=== PATIENT | female | born 1980 | race Caucasian/White ===

== ENCOUNTER 2020-09-01 11:25 | Outpatient (REF) | payer OTHER, SELFPAY ==
[2020-09-01 15:23] LABS: Anion Gap 13 (12-20); Blood Urea Nitrogen 16 mg/dL (9-16); Calcium 9.4 mg/dL (8.4-10.2); Carbon Dioxide 28 mmol/L (22-29); Chloride 100 mmol/L (96-108); Estimated Glomerular Filt Rate > 60; Phosphorus 2.9 mg/dL (2.7-4.5); Potassium 3.4 mmol/l (3.3-5.1); Sodium 138 mmol/L (135-145)
[2020-09-01 16:05] LABS: Renal w Reflex Lab Use Only Order verified
== END 2020-09-01 11:26 | disposition home or self-care (01) ==
LOC: HO.HMGCLDS 11:25
PROVIDERS: PCP Internal Medicine; Visit Provider Internal Medicine Nephrology
DX: I15.9 Secondary hypertension, unspecified (principal); E87.6 Hypokalemia; I10 Essential (primary) hypertension
CPT/HCPCS: 80051; 82310; 82565; 84100; 84520

== ENCOUNTER 2021-04-07 10:41 | Outpatient (REF) | payer OTHER, SELFPAY ==
[2021-04-07 14:07] LABS: Anion Gap 12 (12-20); Blood Urea Nitrogen 15 mg/dL (9-16); Calcium 8.9 mg/dL (8.4-10.2); Chloride 101 mmol/L (96-108); Estimated Glomerular Filt Rate > 60; Phosphorus 3.5 mg/dL (2.7-4.5); Potassium 3.4 mmol/L (3.3-5.1); Sodium 136 mmol/L (135-145)
[2021-04-07 14:16] LABS: Carbon Dioxide 26 mmol/L (22-29)
[2021-04-07 14:33] LABS: Renal w Reflex Lab Use Only Order verified
== END 2021-04-07 10:42 | disposition home or self-care (01) ==
LOC: HO.10HDL 10:41
PROVIDERS: Visit Provider Internal Medicine Nephrology
DX: I15.9 Secondary hypertension, unspecified (principal); E87.6 Hypokalemia
CPT/HCPCS: 36415; 80051; 82310; 82565; 84100; 84520

== ENCOUNTER 2021-10-19 07:45 | Outpatient (REF) | payer OTHER, SELFPAY ==
[2021-10-19 11:25] LABS: Hematocrit 39.8 % (37.0-47.0); Hemoglobin 13.7 g/dl (12.0-16.0); Mean Corpuscular HGB Conc 34.4 g/dl (31.0-35.0); Mean Corpuscular Hemoglobin 31.4 pg (27.0-33.0); Mean Corpuscular Volume 91.1 fL (80.0-98.0); Mean Platelet Volume 10.6 fL (9.4-12.3); Platelet Count 221 X10*3/uL (160-400); Red Blood Count 4.37 X10*6/uL (4.20-5.50); Red Cell Distribution Width 12.1 % (11.0-16.0); White Blood Count 4.7 X10*3/uL (4.8-10.8)
[2021-10-19 11:39] LABS: Alanine Aminotransferase 16 U/L (0-31); Albumin Level 4.1 g/dL (3.5-5.0); Alkaline Phosphatase 52 U/L (39-117); Anion Gap 12 (12-20); Aspartate Amino Transferase 14 U/L (5-31); Bilirubin Total 0.4 mg/dL (0.0-1.0); Blood Urea Nitrogen 14 mg/dL (9-16); Calcium 9.3 mg/dL (8.4-10.2); Carbon Dioxide 26 mmol/L (22-29); Chloride 103 mmol/L (96-108); Cholesterol 179 mg/dL; Estimated Glomerular Filt Rate > 60; Glucose Fasting 81 mg/dL (60-99); HDL Cholesterol 91 mg/dL; LDL Cholesterol Calculated 77 mg/dl; Sodium 137 mmol/L (135-145); Total Protein 7.3 g/dL (6.5-8.0); Triglycerides 57 mg/dL
[2021-10-19 11:43] LABS: Anion Gap 16 (12-20); Blood Urea Nitrogen 14 mg/dL (9-16); Calcium 9.3 mg/dL (8.4-10.2); Carbon Dioxide 22 mmol/L (22-29); Chloride 103 mmol/L (96-108); Estimated Glomerular Filt Rate > 60; Potassium 3.8 mmol/L (3.3-5.1); Sodium 137 mmol/L (135-145)
[2021-10-19 12:00] LABS: TSH reflex Free T4 0.92 uIU/mL (0.32-4.0)
== END 2021-10-19 07:46 | disposition home or self-care (01) ==
LOC: HO.HMGCLDS 07:45
PROVIDERS: Absent Provider Internal Medicine Nephrology; PCP Internal Medicine; Visit Provider Internal Medicine
DX: Z00.00 Encounter for general adult medical examination without abnormal findings (principal); I10 Essential (primary) hypertension; E87.6 Hypokalemia
CPT/HCPCS: 36415; 80051; 80053; 80061; 82310; 82565; 84443; 84520; 85027

== ENCOUNTER 2022-11-07 08:58 | Outpatient (REF) | payer OTHER, SELFPAY ==
[2022-11-07 11:23] LABS: Anion Gap 13 (12-20); Blood Urea Nitrogen 19 mg/dL (9-16); Calcium 9.1 mg/dL (8.4-10.2); Carbon Dioxide 27 mmol/L (22-29); Chloride 101 mmol/L (96-108); Estimated Glomerular Filt Rate > 60; Potassium 4.1 mmol/L (3.3-5.1); Sodium 137 mmol/L (135-145)
== END 2022-11-07 08:59 | disposition home or self-care (01) ==
LOC: HO.10HDL 08:58
PROVIDERS: Visit Provider Internal Medicine Nephrology
DX: I10 Essential (primary) hypertension (principal)
CPT/HCPCS: 36415; 80051; 82310; 82565; 84520

== ENCOUNTER 2022-12-05 08:44 | Outpatient (REF) | payer OTHER, SELFPAY ==
[2022-12-05 11:05] LABS: MANUAL DIFF FLAG NO
[2022-12-05 11:30] LABS: Basophils Percent Auto 0.5 % (0-2); Eosinophils Absolute Auto 0.1 X10*3/uL (0.0-0.4); Eosinophils Percent Auto 1.1 % (0-4); Hematocrit 37.2 % (37.0-47.0); Hemoglobin 12.8 g/dl (12.0-16.0); Imm Gran Abs Auto 0.02 X10*3/uL (0.00-0.03); Imm Gran Pct Auto 0.3 % (0.0-0.4); Lymphocytes Absolute Auto 1.5 X10*3/uL (1.2-4.9); Lymphocytes Percent Auto 23.2 % (20-40); Mean Corpuscular HGB Conc 34.4 g/dl (31.0-35.0); Mean Corpuscular Hemoglobin 30.5 pg (27.0-33.0); Mean Corpuscular Volume 88.8 fL (80.0-98.0); Mean Platelet Volume 10.3 fL (9.4-12.3); Monocytes Absolute Auto 0.5 X10*3/uL (0.1-1.2); Monocytes Percent Auto 7.8 % (2-11); Neutrophils Absolute Auto 4.3 x10*3/uL (2.0-8.3); Neutrophils Percent Auto 67.1 % (45-73); Platelet Count 273 X10*3/uL (160-400); Red Blood Count 4.19 X10*6/uL (4.20-5.50); Red Cell Distribution Width 11.9 % (11.0-16.0); White Blood Count 6.4 X10*3/uL (4.8-10.8)
[2022-12-05 11:39] LABS: Alanine Aminotransferase 18 U/L (0-31); Albumin Level 4.1 g/dL (3.5-5.0); Alkaline Phosphatase 72 U/L (39-117); Anion Gap 11 (12-20); Aspartate Amino Transferase 15 U/L (5-31); Bilirubin Total 0.4 mg/dL (0.0-1.0); Blood Urea Nitrogen 14 mg/dL (9-16); Calcium 9.1 mg/dL (8.4-10.2); Carbon Dioxide 28 mmol/L (22-29); Chloride 102 mmol/L (96-108); Cholesterol 197 mg/dL; Estimated Glomerular Filt Rate > 60; Glucose Fasting 85 mg/dL (60-99); HDL Cholesterol 100 mg/dL; LDL Cholesterol Calculated 83 mg/dl; Potassium 3.6 mmol/L (3.3-5.1); Sodium 137 mmol/L (135-145); Total Protein 7.4 g/dL (6.5-8.0); Triglycerides 72 mg/dL
[2022-12-05 11:42] LABS: TSH reflex Free T4 1.44 uIU/mL (0.32-4.0)
== END 2022-12-05 08:45 | disposition home or self-care (01) ==
LOC: HO.HMGCLDS 08:44
PROVIDERS: PCP Internal Medicine; Visit Provider Internal Medicine
DX: Z00.00 Encounter for general adult medical examination without abnormal findings (principal); I10 Essential (primary) hypertension
CPT/HCPCS: 36415; 80053; 80061; 84443; 85025

== ENCOUNTER 2023-11-27 07:31 | Outpatient (REF) | payer BC, SELFPAY | END 2023-11-27 07:32 | disposition home or self-care (01) | LOC: HO.10HDL 07:31 | PROVIDERS: Visit Provider Internal Medicine Nephrology | DX: I10 Essential (primary) hypertension (principal) | CPT/HCPCS: 36415; 80051; 82310; 82565; 82570; 84156; 84520 ==

== ENCOUNTER 2023-12-01 15:50 | Outpatient (AMB) | payer BC, SELFPAY ==
[2023-12-01 16:04] VITALS: BP 122/64; PULSE 89; O2SAT 99; BMI 21.2
--- NOTE | 2023-12-01 16:04 | MHC.OFFVIS ---
Intake Vital Signs 12/01/23 16:04 Height 5 ft 1 in Weight 112 lb BMI 21.2 BP 122/64 Blood Pressure Location Rt brachial Position Sitting Pulse 89 Pulse Source Pulse Oximeter Pulse Oximetry (%) 99 Oxygen Delivery Method Room Air Intake Visit Reasons: Hypertension Reprographics Technician Required: No Accompanied by: Self / Same As Patient Allergies codeine [CODEINE] Allergy (Unknown, Verified 12/01/23 16:08) HIVES HPI HPI Comments History of Present Illness Details I had the delight of seeing Indu in follow-up for hypertension. She has history of liposuction and breast augmentation. She denies any edema, shortness of breath, chest pain, orthostatic symptoms, nausea, vomiting, diarrhea or new photosensitivity. She remains on lisinopril and chlorthalidone. She is compliant with her medications. She maintains good hydration and avoids nonsteroidal anti-inflammatories. She is quite active and remains employed. She did not have any medication changes or hospitalizations lately. [facility] Medical History Annual physical exam Anxiety Edema HTN (hypertension) Normal Pap smear Surgical History History of breast augmentation Family History Father Medical history non-contributory Mother Medical history non-contributory Daughter No problems noted. Maternal Aunt Substance use disorder Maternal Uncle Substance use disorder Social History Household Members Other:: , 1 child 13, walks daily, works at [employer], Housing: House Alcohol intake: current Alcohol intake frequency: holidays/special occasions only Patient Tobacco Use Status: Never used Tobacco e-Cigarette/Vaping Use: Never Used Second Hand Smoke Exposure: Yes service: No Current occupational status: employed Cognitive needs: No Hearing needs: No Vision needs: No Physical Exam Vital Signs: Last Vital Signs Pulse 89 12/01/23 16:04 BP 122/64 12/01/23 16:04 Pulse Ox 99 12/01/23 16:04 Oxygen Delivery Method Room Air 12/01/23 16:04 BMI result Body Mass Index 21.2 Const General: comfortable and no acute distress Orientation/consciousness: patient oriented x3 HEENT Head: Yes normocephalic Mouth: Normal oral and palatal mucosa present Eyes EOM: EOMs intact bilaterally Neck Neck: Yes supple Resp Auscultation: clear to auscultation bilaterally Cardio Jugular venous distension: no JVD Rate: regular rate GI Palpation (GI): Soft to palpation Auscultation: normal bowel sounds General: Yes no CVA tenderness Back/Spine/Pelvis Back: no CVA tenderness Skin General skin exam: no rashes or lesions noted Neuro General: patient oriented x3 and moves all extremities Extrem General: Yes no pedal edema Assessment & Plan Assessment & Plan (1) HTN (hypertension): Comment: f/u renal Code(s): I10 - Essential (primary) hypertension Qualifiers: Hypertension type: primary hypertension Qualified Code(s): I10 - Essential (primary) hypertension Plan Indu has longstanding hypertension and has been on thiazide diuretic along with ANETTE-inhibitor. Her renal functions have been normal. She is tolerating these medications without any side effects. She does not have any retinopathy or proteinuria. She has no edema or orthostatic symptoms. Her blood pressure has been at goal. She takes low-sodium diet. I did not make any medication changes today. Follow-up lab work ordered. No refills requested. Follow-up appointment given. Answered all questions. Coding Level of Care Code Est Pt Level 3 (22595) Diagnoses Primary hypertension I10 Hypertension type: primary hypertension
== END 2023-12-01 16:40 | disposition home or self-care (01) ==
PROVIDERS: PCP Internal Medicine; Visit Provider Internal Medicine Nephrology
DX: I10 Essential (primary) hypertension (principal)
CPT/HCPCS: 99213

== ENCOUNTER → 2023-12-01 15:50 | Outpatient (BNVA) | payer BC, SELFPAY | PROVIDERS: PCP Internal Medicine; Visit Provider Internal Medicine Nephrology ==

== ENCOUNTER 2023-12-04 14:11 | Outpatient (AMB) | payer BC, SELFPAY ==
[2023-12-04 15:05] VITALS: BP 122/70; PULSE 95; O2SAT 98; BMI 21.0
--- NOTE | 2023-12-04 15:05 | A.OFFPC_ITS ---
Vital Signs 12/04/23 15:05 Height 5 ft 1 in Weight 111 lb BMI 21.0 BP 122/70 Blood Pressure Location Lt brachial Position Sitting Pulse 95 Pulse Source Pulse Oximeter Pulse Oximetry (%) 98 Oxygen Delivery Method Room Air Intake Visit Reasons: discuss buspirone dose Intake Note: Pt is here today for a follow up visit to discuss buspirone dose. Allergies codeine [CODEINE] Allergy (Unknown, Verified 12/04/23 15:09) HIVES Medication List - Last Reconciled 12/04/23 by Jeniffer Chavez MD bupropion HCl (Wellbutrin XL) 150 mg PO QAM bupropion HCl (Wellbutrin XL) 300 mg PO DAILY buspirone 10 mg PO TID chlorthalidone 12.5 mg PO QAM desog-e.estradiol/e.estradiol 0.15-0.02 mgx21 /0.01 mg x 5 1 tab PO DAILY lisinopril 5 mg PO DAILY Tobacco use date assessed: 12/04/23 Dental Screening Dental Screen Date: 12/04/23 Did you have a dental visit in the last 12 months?: Yes Did you have a dental problem in the last 6 months where you did not have access to dental care?: No Was dental information given to patient?: Patient has dentist HPI discuss buspirone dose HPI Details Patient presents for the follow-up of chronic depression and anxiety feeling worse for the last 3 months. Patient denies suicidal ideation. She has tried counseling for 4 months but did not find it helpful .she feels overwhelmed on occasions and anxious and having difficulty with insomnia. Patient has been exercising twice a day week spinning class. [facility] Medical History (Updated 12/04/23 @ 16:01 by Jeniffer Chavez MD) Anxiety Normal Pap smear Annual physical exam Edema HTN (hypertension) Surgical History History of breast augmentation Family History Father Medical history non-contributory Mother Medical history non-contributory Daughter No problems noted. Maternal Aunt Substance use disorder Maternal Uncle Substance use disorder Social History Household Members Other:: , 1 child 13, walks daily, works at [employer], Housing: House Alcohol intake: current Alcohol intake frequency: holidays/special occasions only Patient Tobacco Use Status: Never used Tobacco e-Cigarette/Vaping Use: Never Used Second Hand Smoke Exposure: Yes service: No Current occupational status: employed Cognitive needs: No Hearing needs: No Vision needs: No Questionnaire PHQ-9 Over the last 2 weeks, how often have you been bothered by any of the following problems? 1. Little interest or pleasure in doing things: nearly every day 2. Feeling down, depressed, or hopeless: nearly every day 3. Trouble falling or staying asleep, or sleeping too much: nearly every day 4. Feeling tired or having little energy: nearly every day 5. Poor appetite or overeating: not at all 6. Feeling bad about yourself - or that you are a failure or have let yourself or your family down: not at all 7. Trouble concentrating on things, such as reading the newspaper or watching television: more than half the days 8. Moving or speaking so slowly that other people could have noticed. Or the opposite - being so fidgety or restless that you have been moving around a lot more than usual: not at all 9. Thoughts that you would be better off or of hurting yourself in some way: not at all Total score: 14 Depression Screening Interpretation: Positive Depression Screening Done: Yes 31377 - PHQ-9 Billing: Yes Source: Developed by Drs. Travis Haas, Maura Guerrero, Max Barlow and colleagues, with an educational samuel from [employer]. Thrive Questionnaire Date Thrive assessed: 12/04/23 I am a: Patient What is your living situation today?: I have a steady place to live Within the past 12 months, did the food you bought not last and you didn't have the money to get more?: Never true Within the past 12 months, did you worry whether your food would run out before you got money to buy more?: Never true Do you have trouble paying for medicines?: No Do you have trouble getting transportation to medical appointments?: No Do you have trouble paying your heating and electricity bill?: No Do you have trouble taking care of your child, family member or friend?: No Do you have trouble with day-to-day activities such as bathing, preparing meals, shopping, managing finances, etc.?: No Are you currently unemployed and looking for a job?: No Are you interested in more education?: No Please select the resources that you would like help with: None AUDIT C Alcohol Use Questionnaire (AUDIT-C) 1. How often do you have a drink containing alcohol?: Never 3. How often do you have six or more drinks on one occasion?: Never Total Score: 0 PEDRO-7 AMB Questionnaire PEDRO-7 Date PEDRO - 7 assessed: 12/04/23 Feeling nervous, anxious, or on edge: 3 = Nearly every day Not being able to stop or control worryin = Nearly every day Worrying too much about different things: 3 = Nearly every day Trouble relaxin = Nearly every day Being so restless that it is hard to sit still: 2 = More than half the days Becoming easily annoyed or irritable: 3 = Nearly every day Feeling afraid as if something awful might happen: 3 = Nearly every day Total PEDRO-7 score (0-4 normal; 5-9 mild; 10-14 moderate; 15-21 severe): 20 Source: Developed by Drs. Travis Haas, Maura Guerrero, Max Barlow and colleagues, with an educational samuel from [employer]. PEDRO-7 Assessment Billing PEDRO-7 Assessment Tool: PEDRO-7 Assessment 50424 Review of Systems Const All systems reviewed & are unremarkable except as noted in HPI and below Reports no additional complaints Eyes Reports no additional complaints ENT Reports no additional complaints Card Reports no additional complaints Resp Reports no additional complaints GI Reports no additional complaints Reports no additional complaints Physical exam (Primary Care) Vital Signs: Last Vital Signs Pulse 95 12/04/23 15:05 BP 122/70 12/04/23 15:05 Pulse Ox 98 12/04/23 15:05 Oxygen Delivery Method Room Air 12/04/23 15:05 BMI result Body Mass Index 21.0 Tobacco/Smoking Status: Tobacco use Status Tobacco use date assessed 12/04/23 12/04/23 15:12 Patient Tobacco Use Status Never used Tobacco 12/04/23 15:12 e-Cigarette/Vaping Use Never Used 12/04/23 15:12 Depression Screening Interpretation: Positive Thrive Assessment: Date of Thrive Assessment Date Thrive assessed 12/05/22 12/04/23 15:12 Const General: no acute distress HENMT Head: Yes normal to inspection Ears: hearing grossly normal bilaterally Throat: Yes posterior oropharynx normal Resp Effort & Inspection: normal respiratory effort Auscultation: clear to auscultation bilaterally Cardio Rhythm: regular rhythm Heart sounds: S1 normal heart sound present and S2 normal heart sound present GI Inspection: Yes normal to inspection Assessment and Plan Assessment & Plan (1) Anxiety: Comment: on Welbutrin, Code(s): F41.9 - Anxiety disorder, unspecified (2) Depression with anxiety: Comment: patient tried counseling without effect Code(s): F41.8 - Other specified anxiety disorders Plan: Increase Wellbutrin to 300 mg a day and buspirone to 10 mg 3 times a day as needed,stress management. regular mindfulness exercises and counseling as needed discussed with the patient. She will return in January for physical with a fasting labs before Orders: Orders Comprehensive [place]. Panel Fast 2 Months F41.8 - Other specified anxiety disorders, I10 - Essential (primary) hypertension, Z00.00 - Encounter for general adult medical examination without abnormal findings Complete Blood Count Auto Diff 2 Months F41.8 - Other specified anxiety disorders, I10 - Essential (primary) hypertension, Z00.00 - Encounter for general adult medical examination without abnormal findings TSH reflex Free T4 2 Months F41.8 - Other specified anxiety disorders, I10 - Essential (primary) hypertension, Z00.00 - Encounter for general adult medical examination without abnormal findings Lipid Panel 2 Months F41.8 - Other specified anxiety disorders, I10 - Essential (primary) hypertension, Z00.00 - Encounter for general adult medical examination without abnormal findings Medications: New buspirone 10 mg PO TID 90 tabs 2RF bupropion HCl (Wellbutrin XL) 300 mg PO DAILY 90 tabs 2RF Coding Level of Care Code Est Pt Level 3 (22914) Diagnoses Anxiety F41.9 Depression with anxiety F41.8 Additional Codes PEDRO-7 Assessment Billing - PEDRO-7 Assessment Tool: PEDRO-7 Assessment 18348 ([id number])
== END 2023-12-04 16:02 | disposition home or self-care (01) ==
PROVIDERS: PCP Internal Medicine; Visit Provider Internal Medicine
DX: F41.9 Anxiety disorder, unspecified (principal); F41.8 Other specified anxiety disorders
CPT/HCPCS: 96127; 99213

== ENCOUNTER 2024-02-19 07:20 | Outpatient (REF) | payer BC, SELFPAY ==
[2024-02-19 10:12] LABS: MANUAL DIFF FLAG NO
[2024-02-19 10:27] LABS: Basophils Percent Auto 0.4 % (0-2); Eosinophils Absolute Auto 0.1 X10*3/uL (0.0-0.4); Eosinophils Percent Auto 2.7 % (0-4); Hematocrit 38.2 % (37.0-47.0); Hemoglobin 13.2 g/dl (12.0-16.0); Imm Gran Abs Auto 0.01 X10*3/uL (0.00-0.03); Imm Gran Pct Auto 0.2 % (0.0-0.4); Lymphocytes Absolute Auto 1.6 X10*3/uL (1.2-4.9); Lymphocytes Percent Auto 33.4 % (20-40); Mean Corpuscular HGB Conc 34.6 g/dl (31.0-35.0); Mean Corpuscular Hemoglobin 30.9 pg (27.0-33.0); Mean Corpuscular Volume 89.5 fL (80.0-98.0); Mean Platelet Volume 10.2 fL (9.4-12.3); Monocytes Absolute Auto 0.5 X10*3/uL (0.1-1.2); Monocytes Percent Auto 9.9 % (2-11); Neutrophils Absolute Auto 2.5 x10*3/uL (2.0-8.3); Neutrophils Percent Auto 53.4 % (45-73); Platelet Count 222 X10*3/uL (160-400); Red Blood Count 4.27 X10*6/uL (4.20-5.50); Red Cell Distribution Width 12.3 % (11.0-16.0); White Blood Count 4.7 X10*3/uL (4.8-10.8)
[2024-02-19 10:45] LABS: Alanine Aminotransferase 13 U/L (0-31); Albumin Level 3.9 g/dL (3.5-5.0); Alkaline Phosphatase 42 U/L (39-117); Anion Gap 11 (12-20); Aspartate Amino Transferase 12 U/L (5-31); Bilirubin Total 0.3 mg/dL (0.0-1.0); Blood Urea Nitrogen 14 mg/dL (9-16); Carbon Dioxide 28 mmol/L (22-29); Chloride 103 mmol/L (96-108); Cholesterol 187 mg/dL (<200); Estimated Glomerular Filt Rate > 60; Glucose Fasting 85 mg/dL (60-99); HDL Cholesterol 98 mg/dL (>40); LDL Cholesterol Calculated 74 mg/dL (<100); Potassium 3.3 mmol/L (3.3-5.1); Sodium 139 mmol/L (135-145); Total Protein 7.2 g/dL (6.5-8.0); Triglycerides 75 mg/dL (<150)
[2024-02-19 10:51] LABS: TSH reflex Free T4 0.81 uIU/mL (0.32-4.0)
== END 2024-02-19 07:21 | disposition home or self-care (01) ==
LOC: HO.HMGCLDS 07:20
PROVIDERS: PCP Internal Medicine; Visit Provider Internal Medicine
DX: Z00.00 Encounter for general adult medical examination without abnormal findings (principal); F41.8 Other specified anxiety disorders; I10 Essential (primary) hypertension
CPT/HCPCS: 36415; 80053; 80061; 84443; 85025

== ENCOUNTER 2024-06-05 15:58 | Outpatient (AMB) | payer BC, MEDICAID, SELFPAY ==
--- NOTE | 2024-06-05 16:03 | HO.NEPHOV_ITS ---
Vital Signs 06/05/24 16:04 Height 5 ft 1 in Weight 109 lb BMI 20.6 BP 112/72 Blood Pressure Location Lt brachial Position Sitting Pulse 102 H Pulse Source Pulse Oximeter Pulse Oximetry (%) 98 Oxygen Delivery Method Room Air Intake Visit Reasons: 6 mon follow up/ Conf Kitchen Helper Required: No Accompanied by: Self / Same As Patient Allergies codeine [CODEINE] Allergy (Unknown, Verified 06/05/24 16:06) HIVES HPI Comments Details: I had the delight of seeing Indu in follow-up for hypertension. She has history of liposuction and breast augmentation. She denies any edema, shortness of breath, chest pain, orthostatic symptoms, nausea, vomiting, diarrhea or new photosensitivity. She remains on lisinopril and chlorthalidone. She is compliant with her medications. She maintains good hydration and avoids nonsteroidal anti-inflammatories. She is quite active and remains employed. She did not have any medication changes or hospitalizations lately. [facility] Medical History (Updated 12/04/23 @ 16:01 by Jeniffer Chavez MD) Anxiety Normal Pap smear Annual physical exam Edema HTN (hypertension) Surgical History History of breast augmentation Family History Father Medical history non-contributory Mother Medical history non-contributory Daughter No problems noted. Maternal Aunt Substance use disorder Maternal Uncle Substance use disorder Social History Household Members Other:: , 1 child 13, walks daily, works at [employer], Housing: House Alcohol intake: current Alcohol intake frequency: holidays/special occasions only Patient Tobacco Use Status: Never used Tobacco e-Cigarette/Vaping Use: Never Used Second Hand Smoke Exposure: Yes service: No Current occupational status: employed Cognitive needs: No Hearing needs: No Vision needs: No Review of Systems Const All systems reviewed & are unremarkable except as noted in HPI and below Physical Exam Const General: comfortable and no acute distress Orientation/consciousness: patient oriented x3 HEENT Head: Yes normocephalic Mouth: Normal oral and palatal mucosa present Eyes EOM: EOMs intact bilaterally Neck Neck: Yes supple Resp Auscultation: clear to auscultation bilaterally Cardio Jugular venous distension: no JVD Rate: regular rate GI Palpation (GI): Soft to palpation Auscultation: normal bowel sounds General: Yes no CVA tenderness Back/Spine/Pelvis Back: no CVA tenderness Skin General skin exam: no rashes or lesions noted Neuro General: patient oriented x3 and moves all extremities Extrem General: Yes no pedal edema Results Reviewed Nephrology Results: Hgb 13.2 g/dl (12.0-16.0) 02/19/24 WBC 4.7 X10*3/uL (4.8-10.8) L 02/19/24 Plt Count 222 X10*3/uL (160-400) 02/19/24 Sodium 139 mmol/L (135-145) 02/19/24 Potassium 3.3 mmol/L (3.3-5.1) 02/19/24 Chloride 103 mmol/L (96-108) 02/19/24 Carbon Dioxide 28 mmol/L (22-29) 02/19/24 BUN 14 mg/dL (9-16) 02/19/24 Creatinine 0.82 mg/dL (0.5-1.4) 02/19/24 Calcium 9.0 mg/dL (8.4-10.2) 02/19/24 Phosphorus 3.5 mg/dL (2.7-4.5) 04/07/21 Urine Creatinine 40.46 mg/dL 11/27/23 Protein/Creatinin Ratio TNP 11/27/23 Assessment & Plan Assessment & Plan (1) HTN (hypertension): Comment: f/u renal Code(s): I10 - Essential (primary) hypertension Category: Medical Qualifiers: Hypertension type: primary hypertension Qualified Code(s): I10 - Essential (primary) hypertension Plan Indu has longstanding hypertension and has been on thiazide diuretic along with ANETTE-inhibitor. Her renal functions have been normal. She is tolerating these medications without any side effects. She does not have any retinopathy or proteinuria. She has no edema or orthostatic symptoms. Her blood pressure has been at goal. She takes low-sodium diet. I did not make any medication changes today. Follow-up lab work ordered. No refills requested. Follow-up appointment given. Answered all questions Orders: Orders Blood Urea Nitrogen Today I10 - Essential (primary) hypertension Protein Creatinine Ratio, Ur Today I10 - Essential (primary) hypertension Creatinine Today I10 - Essential (primary) hypertension Electrolytes Today I10 - Essential (primary) hypertension Coding Level of Care Code Est Pt Level 4 (45833) Diagnoses Primary hypertension I10 Hypertension type: primary hypertension
[2024-06-05 16:04] VITALS: BP 112/72; PULSE 102; O2SAT 98; BMI 20.6
== END 2024-06-05 16:22 | disposition home or self-care (01) ==
PROVIDERS: PCP Internal Medicine; Visit Provider Internal Medicine Nephrology
DX: I10 Essential (primary) hypertension (principal)
CPT/HCPCS: 99214

== ENCOUNTER → 2024-06-05 15:58 | Outpatient (BNVA) | payer BC, SELFPAY | PROVIDERS: PCP Internal Medicine; Visit Provider Internal Medicine Nephrology ==

== ENCOUNTER 2024-06-17 09:45 | Outpatient (AMB) | payer BC, SELFPAY ==
--- NOTE | 2024-06-17 10:15 | MHC.PC.OV ---
Vital Signs 06/17/24 10:21 Height 5 ft 1 in Weight 108 lb BMI 20.4 BP 136/76 Blood Pressure Location Lt brachial Position Sitting Pulse 101 H Pulse Source Pulse Oximeter Pulse Oximetry (%) 97 Oxygen Delivery Method Room Air Intake Visit Reasons: PE Intake Note: Pt is here today for PE. Allergies codeine [CODEINE] Allergy (Unknown, Verified 06/17/24 10:22) HIVES Medication List - Last Reconciled 06/17/24 by Jeniffer Chavez MD bupropion HCl XL (Wellbutrin XL) 150 mg PO QAM bupropion HCl XL (Wellbutrin XL) 300 mg PO DAILY buspirone 15 mg PO TID chlorthalidone 12.5 mg (1/2 x 25 mg) PO QAM 90 days desog-e.estradiol/e.estradiol 0.15-0.02 mgx21 /0.01 mg x 5 1 tab PO DAILY lisinopril 5 mg PO DAILY Tobacco use date assessed: 06/17/24 Dental Screening Dental Screen Date: 12/04/23 HPI PE HPI Details Patient presents for physical. She complains of persistent anxiety. She has been taking buspirone but it has not been effective. Patient denies suicide ideation or change in appetite. [facility] Medical History Anxiety Normal Pap smear Annual physical exam Edema HTN (hypertension) Surgical History History of breast augmentation Family History Father Medical history non-contributory Mother Medical history non-contributory Daughter No problems noted. Maternal Aunt Substance use disorder Maternal Uncle Substance use disorder Social History Household Members Other:: , 1 child 13, walks daily, works at [employer], Housing: House Alcohol intake: current Alcohol intake frequency: holidays/special occasions only Patient Tobacco Use Status: Never used Tobacco e-Cigarette/Vaping Use: Never Used Second Hand Smoke Exposure: Yes service: No Current occupational status: employed Cognitive needs: No Hearing needs: No Vision needs: No Questionnaire PHQ-9 Over the last 2 weeks, how often have you been bothered by any of the following problems? 1. Little interest or pleasure in doing things: nearly every day 2. Feeling down, depressed, or hopeless: nearly every day 3. Trouble falling or staying asleep, or sleeping too much: nearly every day 4. Feeling tired or having little energy: nearly every day 5. Poor appetite or overeating: not at all 6. Feeling bad about yourself - or that you are a failure or have let yourself or your family down: not at all 7. Trouble concentrating on things, such as reading the newspaper or watching television: several days 8. Moving or speaking so slowly that other people could have noticed. Or the opposite - being so fidgety or restless that you have been moving around a lot more than usual: not at all 9. Thoughts that you would be better off or of hurting yourself in some way: not at all Total score: 13 Depression Screening Interpretation: Positive Depression Screening Follow-up: Existing condition, In treatment and New Medication prescribed Depression Screening Done: Yes Source: Developed by Drs. Travis Haas, Maura Guerrero, Max Barlow and colleagues, with an educational samuel from [employer]. Thrive Questionnaire Date Thrive assessed: 06/17/24 I am a: Patient What is your living situation today?: I have a steady place to live Within the past 12 months, did the food you bought not last and you didn't have the money to get more?: Never true Within the past 12 months, did you worry whether your food would run out before you got money to buy more?: Never true Do you have trouble paying for medicines?: No Do you have trouble getting transportation to medical appointments?: No Do you have trouble paying your heating and electricity bill?: No Do you have trouble taking care of your child, family member or friend?: No Do you have trouble with day-to-day activities such as bathing, preparing meals, shopping, managing finances, etc.?: No Are you currently unemployed and looking for a job?: No Are you interested in more education?: No Please select the resources that you would like help with: Housing/Prison Currently or been in a relationship where the following occur: No concerns reported THRIVE Score: 0 AUDIT C Alcohol Use Questionnaire (AUDIT-C) 1. How often do you have a drink containing alcohol?: Never 3. How often do you have six or more drinks on one occasion?: Never Total Score: 0 PEDRO-7 AMB Questionnaire PEDRO-7 Date PEDRO - 7 assessed: 06/17/24 Feeling nervous, anxious, or on edge: 3 = Nearly every day Not being able to stop or control worryin = Nearly every day Worrying too much about different things: 3 = Nearly every day Trouble relaxin = Nearly every day Being so restless that it is hard to sit still: 2 = More than half the days Becoming easily annoyed or irritable: 3 = Nearly every day Feeling afraid as if something awful might happen: 3 = Nearly every day Total PEDRO-7 score (0-4 normal; 5-9 mild; 10-14 moderate; 15-21 severe): 20 Source: Developed by Drs. Travis Haas, Maura Guerrero, Max Barlow and colleagues, with an educational samuel from [employer]. Review of Systems Const All systems reviewed & are unremarkable except as noted in HPI and below Eyes Reports no additional complaints ENT Reports no additional complaints Card Reports no additional complaints Resp Reports no additional complaints GI Reports no additional complaints Reports no additional complaints Physical exam (Primary Care) Vital Signs: Last Vital Signs Pulse 101 H 06/17/24 10:21 BP 136/76 06/17/24 10:21 Pulse Ox 97 06/17/24 10:21 Oxygen Delivery Method Room Air 06/17/24 10:21 BMI result Body Mass Index 20.4 Tobacco/Smoking Status: Tobacco use Status Tobacco use date assessed 06/17/24 06/17/24 10:25 Patient Tobacco Use Status Never used Tobacco 06/17/24 10:25 e-Cigarette/Vaping Use Never Used 06/17/24 10:15 PHQ-9: PHQ-9 Score PHQ-9: Total score 13 06/17/24 10:25 Depression Screening Interpretation: Positive Depression Screening Follow-up: Existing condition, In treatment and New Medication prescribed Thrive Assessment: Date of Thrive Assessment Date Thrive assessed 06/17/24 06/17/24 10:25 Currently or been in a relationship where the following occur: No concerns reported Const General: no acute distress HENMT Head: Yes normal to inspection General nose exam: Normal external nose present Mouth: Normal oral and palatal mucosa present Throat: Yes posterior oropharynx normal Eyes General: appearance normal, both eyes and all related structures Neck Neck: Yes no lymphadenopathy and Yes supple Resp Effort & Inspection: normal respiratory effort Auscultation: clear to auscultation bilaterally Cardio Rhythm: regular rhythm Heart sounds: S1 normal heart sound present and S2 normal heart sound present GI Inspection: Yes normal to inspection Palpation (GI): Soft to palpation Percussion: Yes normal to percussion Auscultation: normal bowel sounds Assessment and Plan Assessment & Plan (1) Depression with anxiety: Comment: patient refused counseling 05/2024 Code(s): F41.8 - Other specified anxiety disorders Plan: Stress management and mindfulness discussed with the patient. She declined counseling. Patient would taper of buspirone and start sertraline 25 mg for the 1st week and then increase to 50 mg. Follow-up in 2 months (2) HTN (hypertension): Comment: f/u renal Code(s): I10 - Essential (primary) hypertension Qualifiers: Hypertension type: primary hypertension Qualified Code(s): I10 - Essential (primary) hypertension Plan: Continue current medications (3) Annual physical exam: Code(s): Z00.00 - Encounter for general adult medical examination without abnormal findings Plan: Well-balanced diet regular physical activity discussed with the patient she is up-to-date with the Pap smear and mammogram by tool rental technician Medications: New sertraline 1/2 tabl qd x 1 week, 1 tabl qd 50 mg PO DAILY 30 tabs 2RF Discontinued bupropion HCl XL (Wellbutrin XL) Discontinued Reason: Doctor's Order 150 mg PO QAM 90 tabs 3RF Coding Level of Care Code Est Pt Prev Care 40-64y(65286) Diagnoses Depression with anxiety F41.8 Primary hypertension I10 Hypertension type: primary hypertension Annual physical exam Z00.00
[2024-06-17 10:21] VITALS: BP 136/76; PULSE 101; O2SAT 97; BMI 20.4
== END 2024-06-17 11:03 | disposition home or self-care (01) ==
PROVIDERS: PCP Internal Medicine; Visit Provider Internal Medicine
DX: F41.8 Other specified anxiety disorders (principal); I10 Essential (primary) hypertension; Z00.00 Encounter for general adult medical examination without abnormal findings
CPT/HCPCS: 99396

== ENCOUNTER 2025-02-17 12:24 | Outpatient (AMB) | payer BC, MEDICAID, SELFPAY ==
--- NOTE | 2025-02-17 12:47 | MHC.PC.OV ---
Vital Signs 02/17/25 12:48 Height 5 ft 1 in Weight 108 lb BMI 20.4 BP 120/72 Blood Pressure Location Lt brachial Position Sitting Respiration 18 Pulse 103 H Pulse Source Pulse Oximeter Temp 98.4 F Temp Source Oral Pulse Oximetry (%) 97 Intake Visit Reasons: 6 month Follow Up Intake Note: Pt is here today for 6 months follow up visit. Allergies codeine [CODEINE] Allergy (Unknown, Verified 02/17/25 12:49) HIVES Medication List - Last Reconciled 02/17/25 by Jeniffer Chavez MD bupropion HCl XL (Wellbutrin XL) 300 mg PO DAILY chlorthalidone 12.5 mg (1/2 x 25 mg) PO QAM desog-e.estradiol/e.estradiol 0.15-0.02 mgx21 /0.01 mg x 5 1 tab PO DAILY escitalopram oxalate (Lexapro) 20 mg PO DAILY lisinopril 5 mg PO DAILY sertraline 75 mg (1.5 x 50 mg) PO DAILY Tobacco use date assessed: 02/17/25 Dental Screening Dental Screen Date: 02/17/25 Did you have a dental visit in the last 12 months?: Yes Did you have a dental problem in the last 6 months where you did not have access to dental care?: No Was dental information given to patient?: Patient has dentist HPI 6 month Follow Up HPI Details Patient presents for the follow-up of hypertension and anxiety. She reports no significant improvement with 75 mg of sertraline. Patient continues to take Wellbutrin and reports feeling anxious but also having low energy. She denies depression, suicide ideation change in appetite. [facility] Medical History Anxiety Normal Pap smear Annual physical exam Edema HTN (hypertension) Surgical History History of breast augmentation Family History Father Medical history non-contributory Mother Medical history non-contributory Daughter No problems noted. Maternal Aunt Substance use disorder Maternal Uncle Substance use disorder Social History Household Members Other:: , 1 child 13, walks daily, works at [employer], Housing: House Alcohol intake: current Alcohol intake frequency: holidays/special occasions only Patient Tobacco Use Status: Never used Tobacco e-Cigarette/Vaping Use: Never Used Second Hand Smoke Exposure: Yes service: No Current occupational status: employed Cognitive needs: No Hearing needs: No Vision needs: No Questionnaire PHQ-9 Over the last 2 weeks, how often have you been bothered by any of the following problems? 1. Little interest or pleasure in doing things: nearly every day 2. Feeling down, depressed, or hopeless: more than half the days 3. Trouble falling or staying asleep, or sleeping too much: nearly every day 4. Feeling tired or having little energy: nearly every day 5. Poor appetite or overeating: not at all 6. Feeling bad about yourself - or that you are a failure or have let yourself or your family down: not at all 7. Trouble concentrating on things, such as reading the newspaper or watching television: more than half the days 8. Moving or speaking so slowly that other people could have noticed. Or the opposite - being so fidgety or restless that you have been moving around a lot more than usual: not at all 9. Thoughts that you would be better off or of hurting yourself in some way: not at all Total score: 13 Depression Screening Interpretation: Positive (Sertraline will be changed to Lexapro 20 mg a day patient will continue bupropion. Counseling was recommended but patient declined) Depression Screening Follow-up: Existing condition, In treatment and Change in Medication Depression Screening Done: Yes 37768 - PHQ-9 Billing: Yes Source: Developed by Drs. Travis Haas, Maura Guerrero, Max Barlow and colleagues, with an educational samuel from [employer]. Thrive Questionnaire Date Thrive assessed: 02/17/25 I am a: Patient What is your living situation today?: I have a steady place to live Within the past 12 months, did the food you bought not last and you didn't have the money to get more?: Never true Within the past 12 months, did you worry whether your food would run out before you got money to buy more?: Never true Do you have trouble paying for medicines?: No Do you have trouble getting transportation to medical appointments?: No Do you have trouble paying your heating and electricity bill?: No Do you have trouble taking care of your child, family member or friend?: No Do you have trouble with day-to-day activities such as bathing, preparing meals, shopping, managing finances, etc.?: No Are you currently unemployed and looking for a job?: No Are you interested in more education?: No Please select the resources that you would like help with: None Currently or been in a relationship where the following occur: No concerns reported THRIVE Score: 0 AUDIT C Alcohol Use Questionnaire (AUDIT-C) 1. How often do you have a drink containing alcohol?: Never 3. How often do you have six or more drinks on one occasion?: Never Total Score: 0 PEDRO-7 AMB Questionnaire PEDRO-7 Date PEDRO - 7 assessed: 02/17/25 Feeling nervous, anxious, or on edge: 3 = Nearly every day Not being able to stop or control worryin = Nearly every day Worrying too much about different things: 3 = Nearly every day Trouble relaxin = Nearly every day Being so restless that it is hard to sit still: 2 = More than half the days Becoming easily annoyed or irritable: 3 = Nearly every day Feeling afraid as if something awful might happen: 3 = Nearly every day Total PEDRO-7 score (0-4 normal; 5-9 mild; 10-14 moderate; 15-21 severe): 20 Source: Developed by Drs. Travis Haas, Maura Guerrero, Max Barlow and colleagues, with an educational samuel from [employer]. PEDRO-7 Assessment Billing PEDRO-7 Assessment Tool: PEDRO-7 Assessment 26484 Review of Systems Const All systems reviewed & are unremarkable except as noted in HPI and below Eyes Reports no additional complaints ENT Reports no additional complaints Card Reports no additional complaints Resp Reports no additional complaints GI Reports no additional complaints Reports no additional complaints Physical exam (Primary Care) Vital Signs: Last Vital Signs Temp 98.4 F 02/17/25 12:48 Pulse 103 H 02/17/25 12:48 Resp 18 02/17/25 12:48 BP 120/72 02/17/25 12:48 Pulse Ox 97 02/17/25 12:48 BMI result Body Mass Index 20.4 Tobacco/Smoking Status: Tobacco use Status Tobacco use date assessed 02/17/25 02/17/25 12:52 Patient Tobacco Use Status Never used Tobacco 02/17/25 12:52 e-Cigarette/Vaping Use Never Used 02/17/25 12:52 PHQ-9: PHQ-9 Score PHQ-9: Total score 13 02/17/25 12:52 Depression Screening Interpretation: Positive (Sertraline will be changed to Lexapro 20 mg a day patient will continue bupropion. Counseling was recommended but patient declined) Depression Screening Follow-up: Existing condition, In treatment and Change in Medication Thrive Assessment: Date of Thrive Assessment Date Thrive assessed 02/17/25 02/17/25 12:52 Currently or been in a relationship where the following occur: No concerns reported Const General: no acute distress HENMT Head: Yes normal to inspection Resp Effort & Inspection: normal respiratory effort Auscultation: clear to auscultation bilaterally Cardio Rhythm: regular rhythm Heart sounds: S1 normal heart sound present and S2 normal heart sound present GI Inspection: Yes normal to inspection Palpation (GI): Soft to palpation Percussion: Yes normal to percussion Auscultation: normal bowel sounds Coding Level of Care Code Est Pt Level 4 (76501) Diagnoses Primary hypertension I10 Hypertension type: primary hypertension Depression with anxiety F41.8 Additional Codes PEDRO-7 Assessment Billing - PEDRO-7 Assessment Tool: PEDRO-7 Assessment 55957 ([id number]) PHQ-9 - 91394 - PHQ-9 Billing: Yes ([id number]) Assessment & Plan Assessment & Plan (1) HTN (hypertension): Comment: f/u renal Code(s): I10 - Essential (primary) hypertension Category: Medical Qualifiers: Hypertension type: primary hypertension Qualified Code(s): I10 - Essential (primary) hypertension Plan: Continue current medications and return for fasting blood work (2) Depression with anxiety: Comment: patient refused counseling 05/2024 Code(s): F41.8 - Other specified anxiety disorders Category: Medical Plan: Stress management discussed with the patient change showed sertraline to Lexapro 20 mg daily and continue bupropion. Follow-up in 2 months Orders: Orders Comprehensive [place]. Panel Fast Today F41.8 - Other specified anxiety disorders, I10 - Essential (primary) hypertension Complete Blood Count Auto Diff Today F41.8 - Other specified anxiety disorders, I10 - Essential (primary) hypertension Vitamin D 25-OH Total Today F41.8 - Other specified anxiety disorders, I10 - Essential (primary) hypertension Lipid Panel Today F41.8 - Other specified anxiety disorders, I10 - Essential (primary) hypertension Medications: New escitalopram oxalate (Lexapro) 20 mg PO DAILY 90 tabs 0RF Refilled bupropion HCl XL (Wellbutrin XL) 300 mg PO DAILY 90 tabs 3RF Discontinued sertraline Discontinued Reason: Doctor's Order 75 mg (1.5 x 50 mg) PO DAILY 135 tabs 0RF
[2025-02-17 12:48] VITALS: BP 120/72; PULSE 103; RESP 18; TEMP 36.9; O2SAT 97; BMI 20.4
--- OUTSIDE RECORDS SUMMARY | 2025-02-17 14:04 | XMS_ITS | Clinical Summary ---
Author Organization [facility] Address [address] [place] [address] Phone Care Team Providers Care Crossing Guard Name Role Phone Jeniffer Chavez MD Primary Care Provider [phone] Allergies Active Allergy Reactions Criticality Noted Date Comments Codeine Other (see comments) 04/07/2021 Medications lisinopril (PRINIVIL,ZESTRI L) 5 MG tablet Take 1 tablet by mouth 1 (one) time each day Active desogestrel-ethi nyl estradiol (KARIVA) 0.15-0.02/0.01 MG (09/04) per tablet Take 1 tablet by mouth 1 (one) time each day Active buPROPion XL (WELLBUTRIN XL) 300 MG 24 hr tablet Take 1 tablet by mouth 1 (one) time each day Active chlorthalidone 25 MG tablet TAKE 1/2 TABLET BY MOUTH (12.5MG) ONCE DAILY. 45 tablet 3 05/08/2023 Active Active Problems Problem Noted Date Diagnosed Date Hypertension 10/22/2021 Essential hypertension 04/07/2021 Secondary hypertension 04/07/2021 Hypokalemia 04/07/2021 Family History Relation Status Comments Father Alive Mother Alive Social History Tobacco Use Types Packs/Day Years Used Date Smoking Tobacco: Never Smokeless Tobacco: Never Tobacco Cessation:Counseling Given: Not Answered Alcohol Use Standard Drinks/Week Comments Yes 0 (1 standard drink = 0.6 oz pure alcohol) Alcoholic Drinks/day: Occasional social drink Comments Unknown Sex and Gender Information Value Date Recorded Sex Assigned at Not on file Legal Sex Female 4:53 PM EST Gender Identity Not on file Sexual Orientation Not on file Last Filed Vital Signs Vital Sign Reading Time Taken Comments Blood Pressure 130/70 11/09/2022 4:11 PM EST Pulse 89 11/09/2022 4:11 PM EST Temperature - - Respiratory Rate - - Oxygen Saturation 99% 10/22/2021 3:57 PM EST Inhaled Oxygen Concentration - - Weight 49.2 kg (108 lb 6.4 oz) 11/09/2022 4:11 P M EST Height 154.9 cm (5' 1 ) 09/02/2020 12:00 PM EDT Body Mass Index 20.48 09/02/2020 12:00 PM EDT Plan of Treatment Health Maintenance Due Date Last Done Comments Pneumococcal Vaccine: Pediat rics (0 to 5 Years) and At-Risk Patients (6 to 64 Years) (1 of 2 - PCV) 1988 Hepatitis B Vaccine (1 of 3 - 19+ 3-dose series) 06/10 Influenza Vaccine (#1) 2024 Insurance [facility] [place]ICAID [place] [facility] [place] Care Teams Crossing Guard Relationship Specialty Start Date End Date Jeniffer Chavez MD [facility] [place] [address] PCP - General 11/30/20
== END 2025-02-17 14:21 | disposition home or self-care (01) ==
LOC: HO.HMCC 12:25
PROVIDERS: PCP Internal Medicine; Visit Provider Internal Medicine
DX: I10 Essential (primary) hypertension (principal); F41.8 Other specified anxiety disorders

== ENCOUNTER → 2025-02-17 12:24 | Outpatient (BNVA) | payer BC, MEDICAID, SELFPAY | PROVIDERS: PCP Internal Medicine; Visit Provider Internal Medicine | DX: I10 Essential (primary) hypertension (principal); F41.8 Other specified anxiety disorders; Z79.899 Other long term (current) drug therapy | CPT/HCPCS: 96127 ==

== ENCOUNTER 2025-03-17 07:25 | Outpatient (REF) | payer BC, MEDICAID, SELFPAY ==
--- OUTSIDE RECORDS SUMMARY | 2025-03-17 07:27 | XMS_ITS | Clinical Summary ---
Author Organization [facility] Address [address] [place] [address] Phone Care Team Providers Care Job Trainer Name Role Phone Jeniffer Chavez MD Primary Care Provider [phone] Allergies Active Allergy Reactions Criticality Noted Date [...] Health Maintenance Due Date Last Done Comments Hepatitis B Vaccine (1 of 3 - 19+ 3-dose series) 06/10 Pneumococcal Vaccine: Peds ( 0 to 5 Years) and At-Risk Patients (6 to 49 Years) (1 of 2 - PCV) 2001 Influenza Vaccine (Season Ended) 2025 Insurance [facility] Medicaid [place] [facility] Medicaid [place] Care Teams Job Trainer Relationship Specialty Start Date End Date Jeniffer Chavez MD [facility] [place] [address] PCP - General 11/30/20
[2025-03-17 10:01] LABS: MANUAL DIFF FLAG NO
[2025-03-17 10:11] LABS: Basophils Percent Auto 0.5 % (0-2); Eosinophils Absolute Auto 0.1 X10*3/uL (0.0-0.4); Eosinophils Percent Auto 3.2 % (0-4); Hematocrit 38.9 % (37.0-47.0); Hemoglobin 13.4 g/dl (12.0-16.0); Imm Gran Abs Auto 0.01 X10*3/uL (0.00-0.03); Imm Gran Pct Auto 0.2 % (0.0-0.4); Lymphocytes Absolute Auto 1.5 X10*3/uL (1.2-4.9); Lymphocytes Percent Auto 35.9 % (20-40); Mean Corpuscular HGB Conc 34.4 g/dl (31.0-35.0); Mean Corpuscular Hemoglobin 31.2 pg (27.0-33.0); Mean Corpuscular Volume 90.5 fL (80.0-98.0); Mean Platelet Volume 10.4 fL (9.4-12.3); Monocytes Absolute Auto 0.5 X10*3/uL (0.1-1.2); Monocytes Percent Auto 12.2 % (2-11); Platelet Count 231 X10*3/uL (160-400); Red Cell Distribution Width 12.4 % (11.0-16.0); White Blood Count 4.1 X10*3/uL (4.8-10.8)
[2025-03-17 10:41] LABS: Alanine Aminotransferase 21 U/L (0-31); Albumin Level 4.1 g/dL (3.5-5.0); Alkaline Phosphatase 48 U/L (39-117); Anion Gap 12 (12-20); Aspartate Amino Transferase 18 U/L (5-31); Bilirubin Total 0.4 mg/dL (0.0-1.0); Blood Urea Nitrogen 13 mg/dL (9-16); Calcium 8.7 mg/dL (8.4-10.2); Carbon Dioxide 29 mmol/L (22-29); Chloride 99 mmol/L (96-108); Cholesterol 187 mg/dL (<200); Estimated Glomerular Filt Rate > 60; Glucose Fasting 86 mg/dL (60-99); HDL Cholesterol 102 mg/dL (>40); LDL Cholesterol Calculated 74 mg/dL (<100); Potassium 3.4 mmol/L (3.3-5.1); Sodium 137 mmol/L (135-145); Total Protein 7.1 g/dL (6.5-8.0); Triglycerides 56 mg/dL (<150); Vitamin D 25-OH Total 57.1 ng/mL (>30)
== END 2025-03-17 07:26 | disposition home or self-care (01) ==
LOC: HO.HMGCLDS 07:25
PROVIDERS: PCP Internal Medicine; Visit Provider Internal Medicine
DX: I10 Essential (primary) hypertension (principal); F41.8 Other specified anxiety disorders
CPT/HCPCS: 36415; 80053; 80061; 82306; 85025

== ENCOUNTER 2025-06-02 12:15 | Outpatient (REF) | payer BC, MEDICAID, SELFPAY ==
--- OUTSIDE RECORDS SUMMARY | 2025-06-02 13:15 | XMS_ITS | Clinical Summary ---
Author Organization [facility] Address [address] [place] [address] Phone Care Team Providers Care Tuckpointer Cleaner Caulker Name Role Phone Jeniffer Chavez MD Primary Care Provider [phone] Allergies Active Allergy Reactions Criticality Noted Date [...] of 2 - PCV) 2001 Influenza Vaccine (#1) 2025 Insurance [facility] Medicaid [place] [facility] Medicaid [place] Care Teams Tuckpointer Cleaner Caulker Relationship Specialty Start Date End Date Jeniffer Chavez MD [facility] [place] [address] PCP - General 11/30/20
[2025-06-02 14:36] LABS: Anion Gap 11 (12-20); Blood Urea Nitrogen 12 mg/dL (9-16); Carbon Dioxide 30 mmol/L (22-29); Chloride 101 mmol/L (96-108); Estimated Glomerular Filt Rate > 60; Potassium 3.3 mmol/L (3.3-5.1); Sodium 139 mmol/L (135-145)
[2025-06-02 14:37] LABS: Total Protein Urine Random < 7 mg/dL (<12)
== END 2025-06-02 12:16 | disposition home or self-care (01) ==
LOC: HO.HMGCLDS 12:15
PROVIDERS: PCP Internal Medicine; Visit Provider Internal Medicine Nephrology
DX: I10 Essential (primary) hypertension (principal)
CPT/HCPCS: 36415; 80051; 82565; 82570; 84156; 84520

== ENCOUNTER 2025-06-06 14:54 | Outpatient (AMB) | payer BC, MEDICAID, SELFPAY ==
--- OUTSIDE RECORDS SUMMARY | 2025-06-06 14:58 | XMS_ITS | Clinical Summary ---
Author Organization [facility] Address [address] [place] [address] Phone Care Team Providers Care Separator Tender Name Role Phone Jeniffer Chavez MD Primary Care Provider [phone] Allergies Active Allergy Reactions Criticality Noted Date [...] PCV) 2001 Influenza Vaccine (#1) 2025 Insurance [facility] Medicaid [place] [facility] Medicaid [place] Care Teams Separator Tender Relationship Specialty Start Date End Date Jeniffer Chavez MD [facility] [place] [address] PCP - General 11/30/20
--- NOTE | 2025-06-06 14:59 | HO.NEPHOV ---
Vital Signs 06/06/25 15:00 Height 5 ft 1 in Weight 110 lb 4 oz BMI 20.8 BP 110/76 Blood Pressure Location Lt brachial Position Sitting Pulse 86 Pulse Source Pulse Oximeter Pulse Oximetry (%) 98 Oxygen Delivery Method Room Air Intake Visit Reasons: Hypertension/ Conf Recyclable Materials Collector Required: No Accompanied by: Self / Same As Patient Allergies codeine (CODEINE) Allergy (Unknown, Verified 06/06/25 15:00) HIVES HPI Comments Details: I had the delight of seeing Indu in follow-up for hypertension. She has history of liposuction and breast augmentation. She denies any edema, shortness of breath, chest pain, orthostatic symptoms, nausea, vomiting, diarrhea or new photosensitivity. She remains on lisinopril and chlorthalidone. She is compliant with her medications. She maintains good hydration and avoids nonsteroidal anti-inflammatories. She is quite active and remains employed. [employer] Medical History Anxiety Normal Pap smear Annual physical exam Edema HTN (hypertension) Surgical History History of breast augmentation Family History Father Medical history non-contributory Mother Medical history non-contributory Daughter No problems noted. Maternal Aunt Substance use disorder Maternal Uncle Substance use disorder Social History Household Members Other:: , 1 child 13, walks daily, works at [employer], Housing: House Alcohol intake: current Alcohol intake frequency: holidays/special occasions only Patient Tobacco Use Status: Never used Tobacco e-Cigarette/Vaping Use: Never Used Second Hand Smoke Exposure: Yes service: No Current occupational status: employed Cognitive needs: No Hearing needs: No Vision needs: No Review of Systems Const All systems reviewed & are unremarkable except as noted in HPI and below Physical Exam Vital Signs: Last Vital Signs Pulse 86 06/06/25 15:00 BP 110/76 06/06/25 15:00 Pulse Ox 98 06/06/25 15:00 Oxygen Delivery Method Room Air 06/06/25 15:00 BMI result Body Mass Index 20.8 Const General: comfortable and no acute distress Orientation/consciousness: patient oriented x3 HEENT Head: Yes normocephalic Mouth: Normal oral and palatal mucosa present Eyes EOM: EOMs intact bilaterally Neck Neck: Yes supple Resp Auscultation: clear to auscultation bilaterally Cardio Jugular venous distension: no JVD Rate: regular rate GI Palpation (GI): Soft to palpation Auscultation: normal bowel sounds General: Yes no CVA tenderness Back/Spine/Pelvis Back: no CVA tenderness Skin General skin exam: no rashes or lesions noted Neuro General: patient oriented x3 and moves all extremities Extrem General: Yes no pedal edema Results Reviewed Nephrology Results: Hgb, (12.0-16.0) 13.4 g/dl 03/17/25 WBC, (4.8-10.8) 4.1 X10*3/uL L 03/17/25 Plt Count, (160-400) 231 X10*3/uL 03/17/25 Sodium, (135-145) 139 mmol/L 06/02/25 Potassium, (3.3-5.1) 3.3 mmol/L 06/02/25 Chloride, (96-108) 101 mmol/L 06/02/25 Carbon Dioxide, (22-29) 30 mmol/L H 06/02/25 BUN, (9-16) 12 mg/dL 06/02/25 Creatinine, (0.5-1.4) 0.81 mg/dL 06/02/25 Calcium, (8.4-10.2) 8.7 mg/dL 03/17/25 Urine Creatinine 33.85 mg/dL 06/02/25 Protein/Creatinin Ratio TNP 06/02/25 Assessment & Plan Assessment & Plan (1) HTN (hypertension): Comment: f/u renal Code(s): I10 - Essential (primary) hypertension Category: Medical Qualifiers: Hypertension type: primary hypertension Qualified Code(s): I10 - Essential (primary) hypertension Plan Indu has longstanding hypertension and has been on thiazide diuretic along with ANETTE-inhibitor. Her renal functions have been normal. She is tolerating these medications without any side effects. She does not have any retinopathy or proteinuria. She has no edema or orthostatic symptoms. Her blood pressure has been at goal. She takes low-sodium diet. I did not make any medication changes today. Follow-up lab work ordered. No refills requested. Follow-up appointment given. Answered all questions Orders: Orders Blood Urea Nitrogen 6 Months I10 - Essential (primary) hypertension Creatinine 6 Months I10 - Essential (primary) hypertension Electrolytes 6 Months I10 - Essential (primary) hypertension Coding Level of Care Code Est Pt Level 4 (08296) Diagnoses Primary hypertension I10 Hypertension type: primary hypertension
[2025-06-06 15:00] VITALS: BP 110/76; PULSE 86; O2SAT 98; BMI 20.8
== END 2025-06-06 15:19 | disposition home or self-care (01) ==
LOC: HO.HKA 14:55
PROVIDERS: PCP Internal Medicine; Visit Provider Internal Medicine Nephrology
DX: I10 Essential (primary) hypertension (principal)
CPT/HCPCS: 99214

== ENCOUNTER 2025-11-18 13:41 | Outpatient (AMB) | payer BC, MEDICAID, SELFPAY ==
--- NOTE | 2025-11-18 13:45 | A.OFFPC_ITS ---
Vital Signs 11/18/25 13:46 Height 5 ft 1 in Weight 107 lb BMI 20.2 BP 126/86 Blood Pressure Location Lt brachial Position Sitting Respiration 17 Pulse 110 H Pulse Source Pulse Oximeter Pulse Oximetry (%) 98 Oxygen Delivery Method Room Air Intake Visit Reasons: Insomnia Intake Note: Pt is here today for a sick visit. Pt c/o insomnia. Allergies codeine (CODEINE) Allergy (Unknown, Verified 06/06/25 15:00) HIVES Medication List - Last Reconciled 11/18/25 by Jeniffer Chavez MD bupropion HCl XL (Wellbutrin XL) 300 mg PO DAILY chlorthalidone 12.5 mg (1/2 x 25 mg) PO QAM desog-e.estradiol/e.estradiol 0.15-0.02 mgx21 /0.01 mg x 5 1 tab PO DAILY lisinopril 5 mg PO DAILY lorazepam (Ativan) 0.5 mg PO DAILY PRN Tobacco use date assessed: 02/17/25 Dental Screening Dental Screen Date: 02/17/25 HPI Insomnia HPI Details Patient presents complaining of persistent insomnia since the of her . She has been feeling restless anxious and grieving. Patient has a good support system and her friend is looking for therapist. Patient tried lorazepam which has not been effective. [facility] Medical History (Updated 11/18/25 @ 14:55 by Jeniffer Chvaez MD) Depression with anxiety Anxiety Normal Pap smear Annual physical exam Edema HTN (hypertension) Surgical History History of breast augmentation Family History Father Medical history non-contributory Mother Medical history non-contributory Daughter No problems noted. Maternal Aunt Substance use disorder Maternal Uncle Substance use disorder Social History Household Members Other:: , 1 child 13, walks daily, works at [employer], Housing: House Alcohol intake: current Alcohol intake frequency: holidays/special occasions only Patient Tobacco Use Status: Never used Tobacco e-Cigarette/Vaping Use: Never Used Second Hand Smoke Exposure: Yes service: No Current occupational status: employed Cognitive needs: No Hearing needs: No Vision needs: No Questionnaire Thrive Questionnaire Date Thrive assessed: 01/13/25 I am a: Patient What is your living situation today?: I have a steady place to live Within the past 12 months, did the food you bought not last and you didn't have the money to get more?: Never true Within the past 12 months, did you worry whether your food would run out before you got money to buy more?: Never true Do you have trouble paying for medicines?: No Do you have trouble getting transportation to medical appointments?: No Do you have trouble paying your heating and electricity bill?: No Do you have trouble taking care of your child, family member or friend?: No Do you have trouble with day-to-day activities such as bathing, preparing meals, shopping, managing finances, etc.?: No Are you currently unemployed and looking for a job?: No Are you interested in more education?: No Currently or been in a relationship where the following occur: No concerns reported THRIVE Score: 0 PEDRO-7 AMB Questionnaire PEDRO-7 Date PEDRO - 7 assessed: 02/17/25 Source: Developed by Drs. Travis Haas, Maura Guerrero, Max Barlow and colleagues, with an educational samuel from [employer]. Review of Systems Const All systems reviewed & are unremarkable except as noted in HPI and below ENT Reports no additional complaints Card Reports no additional complaints Resp Reports no additional complaints GI Reports no additional complaints Physical exam (Primary Care) Vital Signs: Last Vital Signs Pulse 110 H 11/18/25 13:46 Resp 17 11/18/25 13:46 BP 126/86 11/18/25 13:46 Pulse Ox 98 11/18/25 13:46 Oxygen Delivery Method Room Air 11/18/25 13:46 BMI result Body Mass Index 20.2 Tobacco/Smoking Status: Tobacco use Status Tobacco use date assessed 02/17/25 11/18/25 13:53 Patient Tobacco Use Status Never used Tobacco 11/18/25 13:53 e-Cigarette/Vaping Use Never Used 11/18/25 13:53 Thrive Assessment: Date of Thrive Assessment Date Thrive assessed 01/13/25 11/18/25 13:53 Currently or been in a relationship where the following occur: No concerns reported Const General: no acute distress HENMT Head: Yes normal to inspection Resp Effort & Inspection: normal respiratory effort Auscultation: clear to auscultation bilaterally Cardio Rhythm: regular rhythm Heart sounds: S1 normal heart sound present and S2 normal heart sound present Coding Level of Care Code Est Pt Level 3 (19547) Diagnoses Depression with anxiety F41.8 Grieving F43.21 Assessment & Plan Assessment & Plan (1) Depression with anxiety: Code(s): F41.8 - Other specified anxiety disorders Category: Medical Plan: Continue bupropion. Lorazepam not effective for insomnia (2) Grieving: Code(s): F43.21 - Adjustment disorder with depressed mood Category: Medical Plan: Hydroxyzine 25-50 mg q.h.s. will be tried for insomnia Medications: New hydroxyzine HCl 1-2 tabl orally bedtime; 30 tabs 0RF
[2025-11-18 13:46] VITALS: BP 126/86; PULSE 110; RESP 17; O2SAT 98; BMI 20.2
--- OUTSIDE RECORDS SUMMARY | 2025-11-18 17:32 | XMS_ITS | Clinical Summary ---
Author Organization [facility] Address [address] [place] [address] Phone Care Team Providers Care [employer] Be[employer] Fitter Name Role Phone Jeniffer Chavez MD Primary Care Provider [phone] Allergies Active Allergy Reactions Criticality Noted Date [...] PCV) 2001 Influenza Vaccine (#1) 2025 Insurance [facility] [place] [facility] Medicaid [place] Care Teams [employer] Be[employer] Fitter Relationship Specialty Start Date End Date Jeniffer Chavez MD [facility] [place] [address] PCP - General 11/30/20
== END 2025-11-18 14:56 | disposition home or self-care (01) ==
LOC: HO.HMCC 13:42
PROVIDERS: PCP Internal Medicine; Visit Provider Internal Medicine
DX: F41.8 Other specified anxiety disorders (principal); F43.21 Adjustment disorder with depressed mood